=== PATIENT | female | born 1975 | race Caucasian/White ===

== ENCOUNTER 2023-04-16 09:56 | Emergency (ER) | payer MEDICAID ==
[~2023-04-16] VITALS: Ht 165.1 cm; Wt 97.5 kg
[2023-04-16] MEDS ORDERED: HYDROCODONE-AC1 EAC1 PO (10:26)
== END 2023-04-16 10:34 | disposition home or self-care (01) ==
LOC: ED 09:56
DX: G56.43 Causalgia of bilateral upper limbs (principal); M79.10 Myalgia, unspecified site; I10 Essential (primary) hypertension; E78.5 Hyperlipidemia, unspecified; Z98.890 Other specified postprocedural states

== ENCOUNTER 2023-06-14 13:26 | Emergency (ER) | payer MEDICAID ==
[~2023-06-14] VITALS: Wt 97.5 kg
[~2023-06-14 13:26] MED LIST: HYDROCODONE-AC1 EAC1 PO
[2023-06-14] MEDS ORDERED: MELOXICAM10 MG PO (14:03)
== END 2023-06-14 14:20 | disposition home or self-care (01) ==
LOC: ED 13:26
DX: G90.521 Complex regional pain syndrome I of right lower limb (principal); Z98.51 Tubal ligation status; Z98.890 Other specified postprocedural states; F17.290 Nicotine dependence, other tobacco product, uncomplicated